=== PATIENT | male | born 1985 | race Caucasian/White ===

== ENCOUNTER 2020-12-06 20:04 | Emergency (ER) | payer SELFPAY ==
[2020-12-06 20:24] VITALS: BP 132/80; PULSE 80; TEMP 97.9; BMI 29.7
[2020-12-06 21:54] LABS: BASO % 0.7 % (0-2.0); EOS % 2.7 % (0-4.5); HEMATOCRIT 43.2 % (35.4-49); HEMOGLOBIN 14.9 GM/dL (11.7-16.9); MCH 29.7 pg (25.7-33.7); MCHC 34.5 g/dl (32.0-35.9); MEAN PLT VOLUME 7.3 fl (7.5-11.1); MONO % 7.9 % (3.8-10.2); NEUT % 56.7 % (42.8-82.8); PLATELET COUNT 253 10^3/uL (134-434); RBC 5.02 M/mm3 (4.00-5.60); RDW 13.4 % (11.9-15.9); WHITE BLOOD COUNT 6.2 K/mm3 (4.0-10.0)
[2020-12-06] MEDS ORDERED: ACETAMINOPHEN 325 MG TABLET (FP) PO ONE (21:55)
[2020-12-06 22:12] LABS: CHLORIDE 110 mmol/L (98-107); SODIUM 141 mmol/L (136-145)
[2020-12-06 22:16] LABS: ALBUMIN 3.8 g/dl (3.4-5.0); ANION GAP 6 MMOL/L (8-16); BLOOD UREA NITROGEN 10.9 mg/dL (7-18); CALCIUM 8.3 mg/dL (8.5-10.1); CO2 26 mmol/L (21-32); GLUCOSE,RANDOM 96 mg/dL (74-106)
[2020-12-06 22:19] LABS: CREATININE 1.2 mg/dL (0.55-1.3); SGOT/AST 22 U/L (15-37); SGPT/ALT 50 U/L (13-61)
[2020-12-06 22:21] LABS: BILIRUBIN,TOTAL 0.3 mg/dL (0.2-1)
[2020-12-06 22:22] LABS: ALK PHOS 98 U/L (45-117)
[2020-12-06] MEDS ORDERED: KETOROLAC TROMETHAMINE 30 MG/1 ML VIAL IM ONE (22:50)
[2020-12-06] MEDS ORDERED: SUCRALFATE 1 GM TABLET (FP) ONE (23:03)
[2020-12-07] MEDS ORDERED: SUCRALFATE 1 GM TABLET (FP) PO ONE (22:54)
== END 2020-12-07 00:17 | disposition home or self-care (01) ==
LOC: JER 20:04
PROC: 3E0233Z Introduction of Anti-inflammatory into Muscle, Percutaneous Approach (ICD-10-PCS; principal; 2020-12-06)
DX: R07.9 Chest pain, unspecified (principal)
CPT/HCPCS: 36415; 71046-TC-FY; 80053; 82550; 82553; 84484; 85025; 93005; 93010; 99285-25

== ENCOUNTER 2020-12-21 14:54 | Emergency (ER) | payer OTHER ==
[2020-12-21 15:25] VITALS: BP 136/64; PULSE 72; TEMP 98.1; BMI 30.2
[2020-12-21 17:32] LABS: BASO % 0.4 % (0-2.0); EOS % 0.4 % (0-4.5); HEMATOCRIT 45.8 % (35.4-49); HEMOGLOBIN 15.6 GM/dL (11.7-16.9); LYMPH % 17.9 % (8-40); MCH 29.4 pg (25.7-33.7); MCHC 34.1 g/dl (32.0-35.9); MEAN CELL VOLUME 86.1 fl (80-96); MEAN PLT VOLUME 7.8 fl (7.5-11.1); MONO % 4.2 % (3.8-10.2); NEUT % 77.1 % (42.8-82.8); PLATELET COUNT 271 10^3/uL (134-434); RBC 5.32 M/mm3 (4.00-5.60); RDW 12.7 % (11.9-15.9); WHITE BLOOD COUNT 7.7 K/mm3 (4.0-10.0)
[2020-12-21 17:53] LABS: CHLORIDE 106 mmol/L (98-107); SODIUM 140 mmol/L (136-145)
[2020-12-21 17:55] LABS: CALCIUM 9.4 mg/dL (8.5-10.1)
[2020-12-21 17:56] LABS: ALBUMIN 4.3 g/dl (3.4-5.0); ANION GAP 6 MMOL/L (8-16); BLOOD UREA NITROGEN 5.7 mg/dL (7-18); CO2 28 mmol/L (21-32); GLUCOSE,RANDOM 88 mg/dL (74-106); MAGNESIUM 2.1 mg/dL (1.8-2.4)
[2020-12-21 17:59] LABS: CREATININE 1.2 mg/dL (0.55-1.3); SGOT/AST 31 U/L (15-37); SGPT/ALT 70 U/L (13-61)
[2020-12-21 18:00] LABS: BILIRUBIN,TOTAL 0.3 mg/dL (0.2-1); TOT PROT 7.8 g/dl (6.4-8.2)
[2020-12-21 18:02] LABS: ALK PHOS 118 U/L (45-117)
[2020-12-21] MEDS ORDERED: hydrOXYzine PAMOATE 50 MG CAPSULE (FP) PO ONE (18:30)
[2020-12-21] MEDS ORDERED: hydrOXYzine PAMOATE 50 MG CAPSULE (FP) ONE (18:34)
== END 2020-12-21 19:25 | disposition home or self-care (01) ==
LOC: JER 14:54
DX: R07.89 Other chest pain (principal)
CPT/HCPCS: 36415; 71046-TC-FY; 80053; 82550; 82553; 83735; 84443; 84484; 85025; 93005; 93010; 99284-25